=== PATIENT | male | born 1965 | race Caucasian/White ===

== ENCOUNTER → 2021-08-05 15:07 | Emergency (ER) | payer MEDICARE ==
[~2021-08-05 15:07] MED LIST: 3IN1 COMMODE; ALBUTEROL SULF8.5 GM PO; ANORO ELLIPTA1 EACH INH; ASPIRIN81 MG PO; BENTYL10 MG PO; CEFDINIR300 MG PO; CIPRO500 MG PO; COZAAR50 MG PO; DICLOFENAC TD; FIBERCON1 EACH PO; FOLIC ACID1 MG PO; HYDROCODONE-APA1 TAB PO; ISOSORBIDE MONO60 MG PO; LEVAQUIN500 MG PO; LIPITOR20 MG PO; LIPITOR80 MG PO; LOFIBRA54 MG PO; LOPRESSOR50 MG PO; MEDROL 4MG DOSEP4 MG PO; METRONIDAZOLE500 MG PO; MOBIC7.5 MG PO; NICOTINE PO; NITROQUIK SL0.4 MG SL; NORVASC2.5 MG PO; NORVASC5 MG PO; PERCOCET 5/3251 TAB PO; PLAVIX75 MG PO; PROTONIX40 M1 PO; RANEXA1000 MG PO; RANEXA500 MG PO; VIBRAMYCIN100 MG PO; VITAMIN D32000 UNI1 PO; ZITHROMAX250 MG PO
[2021-08-05 15:55] LABS: BASOPHIL 1.1 % (0-2); HGB 15.7 g/dl (13.2-18.0); LYMPHOCYTE 15.8 % (15-48); MCH 33.8 pg (25.0-31.0); MCHC 35.7 g/dL (32.0-36.0); MCV 94.8 fL (78.0-100.0); MPV 8.9 fL (6.0-9.5); NEUTROPHIL 73.1 % (41-80); NRBC 0; PLT 205 K/uL (150-400); RBC 4.64 M/uL (4.70-6.00); RDW 12.2 % (11.5-14.0); WBC 9.2 K/uL (4.0-10.5)
[2021-08-05 15:59] LABS: INR 1.31 (0.9-1.2); PROTHROMBIN TIME 15.6 SECONDS (11.8-13.4); PTT 29.2 SECONDS (24.4-34.7)
[2021-08-05 16:11] LABS: ALBUMIN 3.9 g/dL (3.4-5.0); BILIRUBIN - TOTAL 0.8 mg/dL (0.2-1.0); BUN/CREAT RATIO (CALC) 4.6 RATIO; CREATININE 1.09 mg/dL (0.67-1.17); GLOBULIN (CALCULATION) 3.7 g/dL; POTASSIUM 4.3 mmol/L (3.5-5.1); TOTAL PROTEIN 7.6 g/dL (6.4-8.2)
== END | disposition home or self-care (01) ==
LOC: FER 15:07
PROVIDERS: Emergency Medicine
DX: R07.89 Other chest pain (principal); R06.02 Shortness of breath; F17.210 Nicotine dependence, cigarettes, uncomplicated; I25.10 Atherosclerotic heart disease of native coronary artery without angina pectoris; I50.9 Heart failure, unspecified; I25.2 Old myocardial infarction; Z95.5 Presence of coronary angioplasty implant and graft; Z95.0 Presence of cardiac pacemaker; Z88.5 Allergy status to narcotic agent; Z20.822 Contact with and (suspected) exposure to COVID-19; Z86.718 Personal history of other venous thrombosis and embolism
CPT/HCPCS: 36415; 71045; 71275; 80053; 83880; 84145; 84484; 85025; 85610; 85730; 93005; J1170; J1885; J2405; Q9967; U0002

== ENCOUNTER 2021-08-18 14:58 | Emergency (ER) | payer MEDICARE, OTHER ==
[2021-08-18 15:48] LABS: INR 1.18 (0.9-1.2); PROTHROMBIN TIME 14.4 SECONDS (11.8-13.4); PTT 23.1 SECONDS (24.4-34.7)
[2021-08-18 16:02] LABS: EOSINOPHIL 1.6 % (0-5); HCT 44.6 % (42.0-52.0); HGB 16.2 g/dl (13.2-18.0); LYMPHOCYTE 13.7 % (15-48); MCH 33.9 pg (25.0-31.0); MCHC 36.3 g/dL (32.0-36.0); MCV 93.3 fL (78.0-100.0); MONOCYTE 5.5 % (0-12); MPV 9.5 fL (6.0-9.5); NEUTROPHIL 77.5 % (41-80); NRBC 0; PLT 199 K/uL (150-400); RBC 4.78 M/uL (4.70-6.00); RDW 11.9 % (11.5-14.0); WBC 10.5 K/uL (4.0-10.5)
[2021-08-18 16:26] LABS: CORONAVIRUS 2019 SARS-COV-2 NEGATIVE (NEGATIVE); INFLUENZA A NAA NEGATIVE (NEGATIVE)
[2021-08-18 16:43] LABS: ALBUMIN 3.5 g/dL (3.4-5.0); BILIRUBIN - TOTAL 0.8 mg/dL (0.2-1.0); BUN/CREAT RATIO (CALC) 7.4 RATIO; CREATININE 0.95 mg/dL (0.67-1.17); GLOBULIN (CALCULATION) 3.2 g/dL; POTASSIUM 3.9 mmol/L (3.5-5.1); TOTAL PROTEIN 6.7 g/dL (6.4-8.2)
[2021-08-18] MEDS ORDERED: PERCOCET 5-3251 EACH PO (18:21)
[2021-08-18] MEDS ORDERED: AMOX TR-K CLV1 EAC4 PO (18:22)
[2021-08-18] MEDS ORDERED: PREDNISONE 20MG20 MG PO (18:23)
[2021-08-18] MEDS ORDERED: AZITHROMYCIN250 MG PO (18:23)
== END 2021-08-18 18:39 | disposition home or self-care (01) ==
LOC: FER 14:58
PROVIDERS: Emergency Medicine
DX: J44.1 Chronic obstructive pulmonary disease with (acute) exacerbation (principal); J18.9 Pneumonia, unspecified organism; R07.89 Other chest pain; I25.2 Old myocardial infarction; I10 Essential (primary) hypertension; F17.210 Nicotine dependence, cigarettes, uncomplicated; Z88.5 Allergy status to narcotic agent; Z20.822 Contact with and (suspected) exposure to COVID-19; Z95.5 Presence of coronary angioplasty implant and graft
CPT/HCPCS: 36415; 71045; 80053; 84484; 85025; 85610; 85730; 93005; 94640; 94664; J1170; J2930; U0002

== ENCOUNTER 2021-08-25 12:58 | Day surgery (SDCO) | payer MEDICARE, OTHER ==
[~2021-08-25] VITALS: Ht 165.1 cm; Wt 99.8 kg
[~2021-08-25 12:58] MED LIST changes: +AMOX TR-K CLV1 EAC4 PO; +AZITHROMYCIN250 MG PO; +PERCOCET 5-3251 EACH PO; +PREDNISONE 20MG20 MG PO
[2021-08-25 13:41] LABS: BASOPHIL 0.7 % (0-2); EOSINOPHIL 1.5 % (0-5); HCT 41.2 % (42.0-52.0); HGB 14.8 g/dl (13.2-18.0); LYMPHOCYTE 18.2 % (15-48); MCH 33.8 pg (25.0-31.0); MCHC 35.9 g/dL (32.0-36.0); MCV 94.1 fL (78.0-100.0); MPV 8.7 fL (6.0-9.5); NEUTROPHIL 73.6 % (41-80); NRBC 0; PLT 199 K/uL (150-400); RBC 4.38 M/uL (4.70-6.00); RDW 11.9 % (11.5-14.0)
[2021-08-25 13:46] LABS: INR 1.21 (0.9-1.2); PROTHROMBIN TIME 14.7 SECONDS (11.8-13.4); PTT 26.9 SECONDS (24.4-34.7)
[2021-08-25 14:13] LABS: CORONAVIRUS 2019 SARS-COV-2 NEGATIVE (NEGATIVE); INFLUENZA A NAA NEGATIVE (NEGATIVE)
[2021-08-25 14:17] LABS: ALBUMIN 3.7 g/dL (3.4-5.0); ALKALINE PHOSHATASE 52 U/L (46-116); ALT 37 U/L (16-63); AST 17 U/L (15-37); BILIRUBIN - TOTAL 0.5 mg/dL (0.2-1.0); BUN 8 mg/dL (7-18); BUN/CREAT RATIO (CALC) 7.5 RATIO; C-REACTIVE PROTEIN <0.20 mg/dL (<=0.90); CHLORIDE 97 mmol/L (98-107); CO2 (BICARBONATE) 28 mmol/L (21-32); CPK 79 U/L (39-308); CREATININE 1.06 mg/dL (0.67-1.17); GLOBULIN (CALCULATION) 3.4 g/dL; GLUCOSE 116 mg/dL (74-106); MAGNESIUM 1.9 mg/dL (1.8-2.4); POTASSIUM 3.7 mmol/L (3.5-5.1); TOTAL PROTEIN 7.1 g/dL (6.4-8.2)
[2021-08-25 14:31] LABS: BILIRUBIN 1+ mg/dL (NEGATIVE); BLOOD NEGATIVE Ery/uL (NEGATIVE); CLARITY CLEAR (CLEAR); COLOR YELLOW (YELLOW); GLUCOSE (U) NORMAL (NORMAL); LEUKOCYTES NEGATIVE Leu/uL (NEGATIVE); NITRITE NEGATIVE (NEGATIVE); PROTEIN TRACE (LOW) mg/dL (NEGATIVE); UROBILINOGEN 0.2 mg/dL (0.2-1.0); pH 7.5 (5.0-9.0)
[2021-08-25 14:33] LABS: LACTIC ACID 1.4 mmol/L (0.4-1.9)
[2021-08-25 14:37] LABS: SQUAMOUS EPITHELIAL CELLS RARE
[2021-08-25] MEDS ORDERED: ELIQUIS5 MG PO (17:57)
[2021-08-26 06:39] LABS: BASOPHIL 0.5 % (0-2); HCT 35.5 % (42.0-52.0); HGB 12.5 g/dl (13.2-18.0); LYMPHOCYTE 22.3 % (15-48); MCH 33.8 pg (25.0-31.0); MCHC 35.2 g/dL (32.0-36.0); MCV 95.9 fL (78.0-100.0); MPV 8.9 fL (6.0-9.5); NEUTROPHIL 69.1 % (41-80); NRBC 0; PLT 170 K/uL (150-400); RDW 11.9 % (11.5-14.0); WBC 9.8 K/uL (4.0-10.5)
[2021-08-26 07:07] LABS: BUN/CREAT RATIO (CALC) 10.5 RATIO; CREATININE 1.05 mg/dL (0.67-1.17); POTASSIUM 3.8 mmol/L (3.5-5.1)
[2021-08-27 06:35] LABS: BASOPHIL 0.2 % (0-2); EOSINOPHIL 1.1 % (0-5); HCT 35.8 % (42.0-52.0); HGB 12.5 g/dl (13.2-18.0); MCH 33.3 pg (25.0-31.0); MCHC 34.9 g/dL (32.0-36.0); MCV 95.5 fL (78.0-100.0); MONOCYTE 4.9 % (0-12); NRBC 0; PLT 169 K/uL (150-400); RBC 3.75 M/uL (4.70-6.00); RDW 11.9 % (11.5-14.0); WBC 10.3 K/uL (4.0-10.5)
[2021-08-27 06:56] LABS: BUN/CREAT RATIO (CALC) 9.3 RATIO; C-REACTIVE PROTEIN 0.6 mg/dL (<=0.90); CREATININE 0.97 mg/dL (0.67-1.17)
[2021-08-27] MEDS ORDERED: PREDNISONE 20MG20 MG PO (12:16)
== END 2021-08-27 12:55 | disposition home or self-care (01) ==
LOC: FER 12:58 → FMS 16:03
PROVIDERS: Allergy & Immunology Allergy; Emergency Medicine; ADMIT Family Medicine
DX: J44.1 Chronic obstructive pulmonary disease with (acute) exacerbation (principal); R91.8 Other nonspecific abnormal finding of lung field; R07.89 Other chest pain; R79.89 Other specified abnormal findings of blood chemistry; R19.7 Diarrhea, unspecified; I25.10 Atherosclerotic heart disease of native coronary artery without angina pectoris; I12.9 Hypertensive chronic kidney disease with stage 1 through stage 4 chronic kidney disease, or unspecified chronic kidney disease; N18.2 Chronic kidney disease, stage 2 (mild); E78.5 Hyperlipidemia, unspecified; Z95.5 Presence of coronary angioplasty implant and graft; Z79.01 Long term (current) use of anticoagulants; Z20.822 Contact with and (suspected) exposure to COVID-19; Z88.5 Allergy status to narcotic agent; Z95.0 Presence of cardiac pacemaker; Z72.0 Tobacco use
CPT/HCPCS: 36415; 36600; 71275; 80048; 80053; 81001; 82550; 82728; 82803; 83605; 83735; 83880; 84145; 84484; 85025; 85610; 85730; 86140; 87040; 87077; 87186; 93005; 94010; 94640; 94664; 94760; 94762; G0378; J1170; J1650; J2405; J2543; J7030; J7512; Q9967; U0002

== ENCOUNTER 2021-10-27 10:54 | Emergency (ER) | payer MEDICARE, OTHER ==
[~2021-10-27 10:54] MED LIST changes: +ELIQUIS5 MG PO
[2021-10-27 11:29] LABS: EOSINOPHIL 2.9 % (0-5); LYMPHOCYTE 17.5 % (15-48); MCH 33.9 pg (25.0-31.0); MCHC 35.7 g/dL (32.0-36.0); MCV 94.8 fL (78.0-100.0); MONOCYTE 6.9 % (0-12); MPV 9.3 fL (6.0-9.5); NEUTROPHIL 70.8 % (41-80); NRBC 0; PLT 178 K/uL (150-400); RBC 4.43 M/uL (4.70-6.00); RDW 12.4 % (11.5-14.0); WBC 8.7 K/uL (4.0-10.5)
[2021-10-27 11:39] LABS: ALBUMIN 3.4 g/dL (3.4-5.0); BILIRUBIN - TOTAL 0.7 mg/dL (0.2-1.0); BUN/CREAT RATIO (CALC) 3.8 RATIO; CREATININE 1.05 mg/dL (0.67-1.17); GLOBULIN (CALCULATION) 3.9 g/dL; POTASSIUM 3.5 mmol/L (3.5-5.1); TOTAL PROTEIN 7.3 g/dL (6.4-8.2)
[2021-10-27 11:40] LABS: INR 1.29 (0.9-1.2); PROTHROMBIN TIME 15.4 SECONDS (11.8-13.4); PTT 30.7 SECONDS (24.4-34.7)
[2021-10-27 11:41] LABS: D-DIMER 0.36 ug/mLFEU (0.00-0.41)
[2021-10-27 15:53] LABS: BILIRUBIN NEGATIVE (NEGATIVE); BLOOD TRACE-INTACT Ery/uL (NEGATIVE); CLARITY CLEAR (CLEAR); COLOR YELLOW (YELLOW); GLUCOSE (U) NORMAL (NORMAL); LEUKOCYTES NEGATIVE Leu/uL (NEGATIVE); NITRITE NEGATIVE (NEGATIVE); PROTEIN NEGATIVE (NEGATIVE); SPECIFIC GRAVITY 1.025 (1.001-1.030)
[2021-10-27 16:22] LABS: URINARY RBC RARE; URINARY WBC RARE
== END 2021-10-27 19:17 | disposition other institution (70) ==
LOC: FER 10:54
PROVIDERS: Emergency Medicine
DX: R07.9 Chest pain, unspecified (principal); R91.1 Solitary pulmonary nodule; J04.0 Acute laryngitis; J44.9 Chronic obstructive pulmonary disease, unspecified; F17.200 Nicotine dependence, unspecified, uncomplicated; Z88.5 Allergy status to narcotic agent; Z20.822 Contact with and (suspected) exposure to COVID-19; Z28.310 Unvaccinated for COVID-19
CPT/HCPCS: 36415; 36600; 71045; 80053; 81001; 82553; 82803; 84484; 85025; 85379; 85610; 85730; 93005; J2270; J2405; J7040; U0002

== ENCOUNTER 2021-11-07 23:57 | Emergency (ER) | payer MEDICARE, OTHER | END 2021-11-08 02:42 | disposition home or self-care (01) | LOC: FER 23:57 | DX: T17.428A Food in trachea causing other injury, initial encounter (principal); J44.9 Chronic obstructive pulmonary disease, unspecified; I10 Essential (primary) hypertension; Z88.5 Allergy status to narcotic agent; Z87.891 Personal history of nicotine dependence | CPT/HCPCS: J1170 ==

== ENCOUNTER → 2021-11-26 | Day surgery (SDC) | payer MEDICARE, OTHER ==
[~2021-11-26] VITALS: Ht 165.1 cm; Wt 86.2 kg
[~2021-11-26] MED LIST changes: +NORCO 5-325 TA1 EACH PO
== END | disposition home or self-care (01) ==
LOC: FAS 08:22
DX: C32.9 Malignant neoplasm of larynx, unspecified (principal); I87.2 Venous insufficiency (chronic) (peripheral); E78.5 Hyperlipidemia, unspecified; I10 Essential (primary) hypertension; I25.2 Old myocardial infarction; J44.9 Chronic obstructive pulmonary disease, unspecified; Z93.0 Tracheostomy status; Z90.49 Acquired absence of other specified parts of digestive tract; Z79.01 Long term (current) use of anticoagulants; Z79.02 Long term (current) use of antithrombotics/antiplatelets
CPT/HCPCS: 71045; 76000; 93005; C1788; J0690; J1644; J2250; J2704; J7120

== ENCOUNTER → 2022-01-13 | Day surgery (SDC) | payer MEDICARE, OTHER ==
[~2022-01-13] VITALS: Ht 165.1 cm; Wt 86.2 kg
[~2022-01-13] MED LIST changes: +TRELEGY ELLIPT1 EACH INH; +VENTOLIN HFA IN18 GM INH
[2022-01-13 11:33] LABS: MCH 30.8 pg (25.0-31.0); MCHC 33.3 g/dL (32.0-36.0); MCV 92.5 fL (78.0-100.0); MPV 8.4 fL (6.0-9.5); PLT 178 K/uL (150-400); RBC 2.92 M/uL (4.70-6.00); RDW 14.1 % (11.5-14.0); WBC 3.1 K/uL (4.0-10.5)
[2022-01-13 14:18] LABS: ALBUMIN 2.9 g/dL (3.4-5.0); BILIRUBIN - TOTAL 0.4 mg/dL (0.2-1.0); BUN/CREAT RATIO (CALC) 5.6 RATIO; CREATININE 0.9 mg/dL (0.67-1.17); POTASSIUM 3.4 mmol/L (3.5-5.1); TOTAL PROTEIN 6.9 g/dL (6.4-8.2)
[2022-01-14 10:14] LABS: BASOPHIL 1.3 % (0-2); EOSINOPHIL 1.3 % (0-5); LYMPHOCYTE 25.6 % (15-48); MONOCYTE 15.9 % (0-12); NEUTROPHIL 50.9 % (41-80); NRBC 0
== END | disposition home or self-care (01) ==
LOC: FAS 09:53
PROVIDERS: Surgery
DX: K94.23 Gastrostomy malfunction (principal); C32.9 Malignant neoplasm of larynx, unspecified; E78.5 Hyperlipidemia, unspecified; I10 Essential (primary) hypertension; I25.2 Old myocardial infarction; J44.9 Chronic obstructive pulmonary disease, unspecified; G47.30 Sleep apnea, unspecified; F17.210 Nicotine dependence, cigarettes, uncomplicated; Z79.01 Long term (current) use of anticoagulants; Z79.02 Long term (current) use of antithrombotics/antiplatelets; Z79.899 Other long term (current) drug therapy; Z20.822 Contact with and (suspected) exposure to COVID-19
CPT/HCPCS: 36415; 80053; 85025; J2250; J2704; J7120; U0002

== ENCOUNTER 2022-01-27 19:17 | Inpatient (IN) | payer MEDICARE, OTHER ==
[~2022-01-27] VITALS: Ht 165.1 cm; Wt 95.0 kg
[2022-01-27 19:49] LABS: BASOPHIL 0 % (0-2); EOSINOPHIL 1.2 % (0-5); HCT 21.5 % (42.0-52.0); HGB 7.4 g/dl (13.2-18.0); LYMPHOCYTE 16.4 % (15-48); MCH 30.5 pg (25.0-31.0); MCHC 34.4 g/dL (32.0-36.0); MCV 88.5 fL (78.0-100.0); MONOCYTE 6.7 % (0-12); MPV 9.4 fL (6.0-9.5); NEUTROPHIL 74.5 % (41-80); NRBC 0; PLT 121 K/uL (150-400); RBC 2.43 M/uL (4.70-6.00); RDW 13.8 % (11.5-14.0)
[2022-01-27 19:53] LABS: WBC 1.7 K/uL (4.0-10.5)
[2022-01-27 20:07] LABS: ALBUMIN 2.8 g/dL (3.4-5.0); BILIRUBIN - TOTAL 0.6 mg/dL (0.2-1.0); BUN/CREAT RATIO (CALC) 12.2 RATIO; CREATININE 1.39 mg/dL (0.67-1.17); GLOBULIN (CALCULATION) 3.5 g/dL; POTASSIUM 3.7 mmol/L (3.5-5.1); TOTAL PROTEIN 6.3 g/dL (6.4-8.2)
[2022-01-27 20:11] LABS: LACTIC ACID 1.5 mmol/L (0.4-1.9)
[2022-01-27 20:50] LABS: CORONAVIRUS 2019 SARS-COV-2 NEGATIVE (NEGATIVE); INFLUENZA A NAA NEGATIVE (NEGATIVE)
[2022-01-27 21:52] LABS: BILIRUBIN NEGATIVE (NEGATIVE); BLOOD NEGATIVE Ery/uL (NEGATIVE); CLARITY CLEAR (CLEAR); COLOR YELLOW (YELLOW); GLUCOSE (U) NORMAL (NORMAL); LEUKOCYTES NEGATIVE Leu/uL (NEGATIVE); NITRITE NEGATIVE (NEGATIVE); PROTEIN NEGATIVE (NEGATIVE); UROBILINOGEN 0.2 mg/dL (0.2-1.0)
[2022-01-27 22:57] LABS: INR 1.37 (0.9-1.2); PROTHROMBIN TIME 16.4 SECONDS (11.9-13.9); PTT 38.8 SECONDS (24.9-34.6)
[2022-01-28 01:06] LABS: RETICULOCYTE COUNT 0.5 % (1.0-2.0)
[2022-01-28 01:10] LABS: IRON % SATURATION 15.7 %SAT (20-50)
[2022-01-28 05:32] LABS: BASOPHIL 0.4 % (0-2); EOSINOPHIL 1.3 % (0-5); HCT 23.2 % (42.0-52.0); HGB 7.9 g/dl (13.2-18.0); LYMPHOCYTE 16.6 % (15-48); MCH 29.7 pg (25.0-31.0); MCHC 34.1 g/dL (32.0-36.0); MCV 87.2 fL (78.0-100.0); MONOCYTE 7.6 % (0-12); MPV 9.5 fL (6.0-9.5); NEUTROPHIL 72.8 % (41-80); NRBC 0; PLT 103 K/uL (150-400); RBC 2.66 M/uL (4.70-6.00); RDW 15.1 % (11.5-14.0); WBC 2.2 K/uL (4.0-10.5)
[2022-01-28 05:43] LABS: BUN/CREAT RATIO (CALC) 12.4 RATIO; CREATININE 1.05 mg/dL (0.67-1.17); POTASSIUM 3.7 mmol/L (3.5-5.1)
[2022-01-28 10:46] LABS: FOLIC ACID (SERUM) <0.5 ng/mL (8.6-58.9)
[2022-01-28 20:40] LABS: CORONAVIRUS 229E NOT DETECTED (NOT DETECT); CORONAVIRUS HKU1 NOT DETECTED (NOT DETECT); CORONAVIRUS NL63 NOT DETECTED (NOT DETECT); CORONAVIRUS OC43 NOT DETECTED (NOT DETECT); HUMAN METAPNEUMO NOT DETECTED (NOT DETECT)
[2022-01-28 20:41] LABS: B. PERTUSSIS DNA NOT DETECTED (NOT DETECT); CHLAMYDOPHILA PNEUMON DNA PCR NOT DETECTED (NOT DETECT); CORONAVIRUS 2019 PCR NOT DETECTED (NOT DETECTD); INFLUENZA A NOT DETECTED (NOT DETECT); INFLUENZA A 2009 H1N1 NOT DETECTED (NOT DETECT); INFLUENZA A H1 NOT DETECTED (NOT DETECT); INFLUENZA A H3 NOT DETECTED (NOT DETECT); INFLUENZA B NOT DETECTED (NOT DETECT); MYCOPLASMA PNEUMONIAE NOT DETECTED (NOT DETECT); PARAINFLUENZA 1 NOT DETECTED (NOT DETECT); PARAINFLUENZA 2 NOT DETECTED (NOT DETECT); PARAINFLUENZA 3 NOT DETETED (NOT DETECT); PARAINFLUENZA 4 NOT DETECTED (NOT DETECT); RESPIRATORY SYNCYTIAL VIRUS NOT DETECTED (NOT DETECT)
--- NOTE | 2022-01-28 20:48 | NUR ---
levophed stopped at 1900 during shift change. pt bp consistent at 110/50-60. hr 90/100
--- NOTE | 2022-01-29 02:47 | NUR ---
TRACH CARE WAS DONE BY RESPIRATORY WITH INNER CANNULA CHANGED. G TUBE WAS FLUSHED WITH 50 ML OF WATER BY RN. PATIENT TOLERATED WELL.
[2022-01-29 05:32] LABS: ALBUMIN 2.4 g/dL (3.4-5.0); ALKALINE PHOSHATASE 54 U/L (46-116); ALT 16 U/L (16-63); AST 15 U/L (15-37); BILIRUBIN - TOTAL 0.4 mg/dL (0.2-1.0); BUN 6 mg/dL (7-18); C-REACTIVE PROTEIN >18.00 mg/dL (<=0.90); CHLORIDE 101 mmol/L (98-107); CO2 (BICARBONATE) 29 mmol/L (21-32); CREATININE 0.86 mg/dL (0.67-1.17); GLOBULIN (CALCULATION) 2.9 g/dL; GLUCOSE 111 mg/dL (74-106); PHOSPHORUS 2.9 mg/dL (2.6-4.7); POTASSIUM 3.3 mmol/L (3.5-5.1); TOTAL PROTEIN 5.3 g/dL (6.4-8.2)
[2022-01-29 06:18] LABS: BASOPHIL 0.5 % (0-2); HCT 20.7 % (42.0-52.0); HGB 7.1 g/dl (13.2-18.0); MCH 30.1 pg (25.0-31.0); MCHC 34.3 g/dL (32.0-36.0); MCV 87.7 fL (78.0-100.0); MONOCYTE 8.7 % (0-12); MPV 9.6 fL (6.0-9.5); NEUTROPHIL 71.8 % (41-80); NRBC 0; PLT 107 K/uL (150-400); RBC 2.36 M/uL (4.70-6.00); RDW 15.4 % (11.5-14.0); WBC 2.1 K/uL (4.0-10.5)
[2022-01-29 06:42] LABS: MAGNESIUM 1.5 mg/dL (1.8-2.4)
[2022-01-30 06:18] LABS: BASOPHIL 0.4 % (0-2); EOSINOPHIL 0.8 % (0-5); HCT 20.9 % (42.0-52.0); HGB 7.2 g/dl (13.2-18.0); LYMPHOCYTE 16.5 % (15-48); MCH 30.1 pg (25.0-31.0); MCHC 34.4 g/dL (32.0-36.0); MCV 87.4 fL (78.0-100.0); MONOCYTE 12.4 % (0-12); MPV 9.3 fL (6.0-9.5); NEUTROPHIL 69.1 % (41-80); NRBC 0; PLT 102 K/uL (150-400); RBC 2.39 M/uL (4.70-6.00); RDW 15.1 % (11.5-14.0); WBC 2.4 K/uL (4.0-10.5)
[2022-01-30 06:50] LABS: ALBUMIN 2.4 g/dL (3.4-5.0); BILIRUBIN - TOTAL 0.3 mg/dL (0.2-1.0); BUN/CREAT RATIO (CALC) 3.6 RATIO; C-REACTIVE PROTEIN 17.1 mg/dL (<=0.90); CREATININE 0.83 mg/dL (0.67-1.17); GLOBULIN (CALCULATION) 3.1 g/dL; MAGNESIUM 1.4 mg/dL (1.8-2.4); POTASSIUM 3.2 mmol/L (3.5-5.1); TOTAL PROTEIN 5.5 g/dL (6.4-8.2)
--- NOTE | 2022-01-30 13:33 | NUR ---
PT HAS [facility];PLEASE NOTIFY NARCISO AT [phone] AT D/C
[2022-01-31 06:15] LABS: BASOPHIL 0.4 % (0-2); EOSINOPHIL 0.4 % (0-5); HCT 19.7 % (42.0-52.0); LYMPHOCYTE 19.9 % (15-48); MCH 29.3 pg (25.0-31.0); MCV 88.7 fL (78.0-100.0); MONOCYTE 18.7 % (0-12); MPV 8.7 fL (6.0-9.5); NEUTROPHIL 59.8 % (41-80); NRBC 0; PLT 103 K/uL (150-400); RBC 2.22 M/uL (4.70-6.00); RDW 15.6 % (11.5-14.0); WBC 2.4 K/uL (4.0-10.5)
[2022-01-31 06:17] LABS: HGB 6.5 g/dl (13.2-18.0)
[2022-01-31 06:40] LABS: BUN/CREAT RATIO (CALC) 3.8 RATIO; C-REACTIVE PROTEIN 15.1 mg/dL (<=0.90); CREATININE 0.8 mg/dL (0.67-1.17); POTASSIUM 3.4 mmol/L (3.5-5.1)
[2022-02-01 08:07] LABS: BASOPHIL 0.4 % (0-2); EOSINOPHIL 1.1 % (0-5); MCH 29.8 pg (25.0-31.0); MCHC 33.5 g/dL (32.0-36.0); MONOCYTE 18.4 % (0-12); MPV 9.1 fL (6.0-9.5); NEUTROPHIL 61.3 % (41-80); NRBC 0; PLT 118 K/uL (150-400); RBC 2.92 M/uL (4.70-6.00); RDW 15.8 % (11.5-14.0); WBC 2.6 K/uL (4.0-10.5)
[2022-02-01 08:12] LABS: HGB 8.7 g/dl (13.2-18.0)
[2022-02-01 08:44] LABS: BUN/CREAT RATIO (CALC) 3.9 RATIO; C-REACTIVE PROTEIN 12.8 mg/dL (<=0.90); CREATININE 0.77 mg/dL (0.67-1.17); MAGNESIUM 1.2 mg/dL (1.8-2.4); POTASSIUM 4.5 mmol/L (3.5-5.1)
[2022-02-01] MEDS ORDERED: AMOX TR-K CLV1 EAC4 PO (17:02)
[2022-02-01] MEDS ORDERED: DUONEB 2.5-0.5M1 AMP INH (17:25)
[2022-02-01] MEDS ORDERED: MUCINEX1200 MG PO (17:25)
[2022-02-01] MEDS ORDERED: HYDROCODONE-CH473 ML PO (17:25)
[2022-02-01] MEDS ORDERED: TESSALON PERLE100 MG PO (17:25)
--- NOTE | 2022-02-01 19:20 | NUR ---
PORT WAS FLUSHED, HEP LOCKED AND DEACCESSED PORT AND COVERED WITH BANDAGED. FLUSHED WITH HEPARIN LOCK BUT WAS UNABLE TO SCAN INTO SEP.
== END 2022-02-01 17:59 | disposition home health service (06) | DRG 871 ==
LOC: FER 19:17 → FICU 22:52 → FTCU 01-29 13:01
PROVIDERS: Emergency Medicine; Nurse Practitioner Acute Care; ADMIT Internal Medicine
PROC: 3E033XZ Introduction of Vasopressor into Peripheral Vein, Percutaneous Approach (ICD-10-PCS; principal; 2022-01-27)
PROC: 3E03329 Introduction of Other Anti-infective into Peripheral Vein, Percutaneous Approach (ICD-10-PCS; 2022-01-27)
PROC: 30233N1 Transfusion of Nonautologous Red Blood Cells into Peripheral Vein, Percutaneous Approach (ICD-10-PCS; 2022-01-31)
DX: A41.9 Sepsis, unspecified organism (principal); D61.810 Antineoplastic chemotherapy induced pancytopenia; E43 Unspecified severe protein-calorie malnutrition; G93.41 Metabolic encephalopathy; R65.21 Severe sepsis with septic shock; K57.32 Diverticulitis of large intestine without perforation or abscess without bleeding; N17.9 Acute kidney failure, unspecified; J44.1 Chronic obstructive pulmonary disease with (acute) exacerbation; D84.821 Immunodeficiency due to drugs; I50.32 Chronic diastolic (congestive) heart failure; C34.90 Malignant neoplasm of unspecified part of unspecified bronchus or lung; E87.1 Hypo-osmolality and hyponatremia; Z20.822 Contact with and (suspected) exposure to COVID-19; T45.1X5A Adverse effect of antineoplastic and immunosuppressive drugs, initial encounter; R91.8 Other nonspecific abnormal finding of lung field; T66.XXXA Radiation sickness, unspecified, initial encounter; I11.0 Hypertensive heart disease with heart failure; E78.5 Hyperlipidemia, unspecified; C32.9 Malignant neoplasm of larynx, unspecified; E83.42 Hypomagnesemia; E87.6 Hypokalemia; J98.01 Acute bronchospasm; I49.5 Sick sinus syndrome; F17.210 Nicotine dependence, cigarettes, uncomplicated; I25.10 Atherosclerotic heart disease of native coronary artery without angina pectoris; R13.10 Dysphagia, unspecified; D51.9 Vitamin B12 deficiency anemia, unspecified; D52.9 Folate deficiency anemia, unspecified; M51.36 Other intervertebral disc degeneration, lumbar region; I25.2 Old myocardial infarction; Z95.0 Presence of cardiac pacemaker; Z93.0 Tracheostomy status; Z88.5 Allergy status to narcotic agent; Z90.49 Acquired absence of other specified parts of digestive tract; Z98.890 Other specified postprocedural states; Z80.0 Family history of malignant neoplasm of digestive organs; Z79.899 Other long term (current) drug therapy; Z28.310 Unvaccinated for COVID-19; Z92.21 Personal history of antineoplastic chemotherapy; Z93.1 Gastrostomy status; Z95.5 Presence of coronary angioplasty implant and graft; Z68.31 Body mass index [BMI] 31.0-31.9, adult
CPT/HCPCS: 36415; 36430; 71045; 71275; 80048; 80053; 81003; 82270; 82607; 82728; 82746; 83540; 83550; 83605; 83735; 83880; 84100; 84145; 84300; 84484; 85025; 85610; 85730; 86140; 86850; 86900; 86901; 86922; 87040; 87070; 87205; 93005; 94640; C9113; J0692; J1170; J1450; J1642; J2185; J2405; J2916; J3370; J3420; J3475; J7030; J7040; J7050; P9016; Q9967; U0002

== ENCOUNTER 2022-03-18 16:50 | Emergency (ER) | payer MEDICARE, OTHER ==
[~2022-03-18 16:50] MED LIST changes: +DUONEB 2.5-0.5M1 AMP INH; +HYDROCODONE-CH473 ML PO; +LEVAQUIN750 MG PO; +MORPHINE SULFAT15 MG PO; +MUCINEX1200 MG PO; +ONDANSETRON HCL4 MG PO; +TESSALON PERLE100 MG PO
[2022-03-18 17:26] LABS: BASOPHIL 0.5 % (0-2); EOSINOPHIL 3.3 % (0-5); HCT 24.3 % (42.0-52.0); HGB 8.4 g/dl (13.2-18.0); LYMPHOCYTE 6.2 % (15-48); MCH 31.2 pg (25.0-31.0); MCHC 34.6 g/dL (32.0-36.0); MCV 90.3 fL (78.0-100.0); MONOCYTE 7.8 % (0-12); MPV 8.1 fL (6.0-9.5); NEUTROPHIL 80.1 % (41-80); NRBC 0; PLT 208 K/uL (150-400); RBC 2.69 M/uL (4.70-6.00); WBC 9.4 K/uL (4.0-10.5)
[2022-03-18 17:45] LABS: ALBUMIN 3.1 g/dL (3.4-5.0); BILIRUBIN - TOTAL 0.5 mg/dL (0.2-1.0); BUN/CREAT RATIO (CALC) 8.8 RATIO; CREATININE 1.02 mg/dL (0.67-1.17); POTASSIUM 3.8 mmol/L (3.5-5.1); TOTAL PROTEIN 7.1 g/dL (6.4-8.2)
[2022-03-18 17:48] LABS: INR 1.56 (0.9-1.2); PROTHROMBIN TIME 18.2 SECONDS (11.9-13.9); PTT 49.6 SECONDS (24.9-34.6)
[2022-03-18 19:51] LABS: CORONAVIRUS 2019 SARS-COV-2 NEGATIVE (NEGATIVE); INFLUENZA A NAA NEGATIVE (NEGATIVE)
[2022-03-18 19:55] LABS: BILIRUBIN 1+ mg/dL (NEGATIVE); BLOOD NEGATIVE Ery/uL (NEGATIVE); CLARITY CLEAR (CLEAR); COLOR YELLOW (YELLOW); GLUCOSE (U) NORMAL (NORMAL); LEUKOCYTES NEGATIVE Leu/uL (NEGATIVE); NITRITE NEGATIVE (NEGATIVE); PROTEIN TRACE (LOW) mg/dL (NEGATIVE); SPECIFIC GRAVITY 1.015 (1.001-1.030); pH 7.5 (5.0-9.0)
[2022-03-18] MEDS ORDERED: VENTOLIN HFA IN18 GM INH (21:49)
[2022-03-18] MEDS ORDERED: NEBULIZER UNIT NEB (21:49)
== END 2022-03-18 22:05 | disposition home or self-care (01) ==
LOC: FER 16:50
PROVIDERS: Emergency Medicine; Internal Medicine
DX: J44.1 Chronic obstructive pulmonary disease with (acute) exacerbation (principal); J98.09 Other diseases of bronchus, not elsewhere classified; C34.30 Malignant neoplasm of lower lobe, unspecified bronchus or lung; C32.9 Malignant neoplasm of larynx, unspecified; I10 Essential (primary) hypertension; F17.210 Nicotine dependence, cigarettes, uncomplicated; Z88.5 Allergy status to narcotic agent; Z20.822 Contact with and (suspected) exposure to COVID-19
CPT/HCPCS: 36415; 71045; 71250; 80053; 81001; 83605; 83880; 84484; 85025; 85610; 85730; 93005; 94640; 94664; 94760; J1100; J1170; J1642; J3010; U0002

== ENCOUNTER 2022-03-25 14:10 | Day surgery (SDCO) | payer MEDICARE, OTHER ==
[~2022-03-25] VITALS: Ht 165.1 cm; Wt 78.5 kg
[~2022-03-25 14:10] MED LIST changes: +NEBULIZER UNIT NEB
[2022-03-25 15:05] LABS: BASOPHIL 0.5 % (0-2); EOSINOPHIL 2.4 % (0-5); HCT 26.1 % (42.0-52.0); HGB 9.1 g/dl (13.2-18.0); LYMPHOCYTE 5.7 % (15-48); MCH 31.7 pg (25.0-31.0); MCHC 34.9 g/dL (32.0-36.0); MCV 90.9 fL (78.0-100.0); MONOCYTE 9.4 % (0-12); MPV 8.4 fL (6.0-9.5); NEUTROPHIL 80.9 % (41-80); NRBC 0; PLT 242 K/uL (150-400); RBC 2.87 M/uL (4.70-6.00); RDW 14.6 % (11.5-14.0); WBC 8.7 K/uL (4.0-10.5)
[2022-03-25 15:25] LABS: INR 1.27 (0.9-1.2); PROTHROMBIN TIME 15.5 SECONDS (11.9-13.9); PTT 33.2 SECONDS (24.9-34.6)
[2022-03-25 15:40] LABS: LACTIC ACID 0.6 mmol/L (0.4-1.9)
[2022-03-25 15:43] LABS: ALBUMIN 3.2 g/dL (3.4-5.0); BILIRUBIN - TOTAL 0.4 mg/dL (0.2-1.0); BUN/CREAT RATIO (CALC) 7.9 RATIO; CREATININE 0.89 mg/dL (0.67-1.17); GLOBULIN (CALCULATION) 3.4 g/dL; POTASSIUM 3.5 mmol/L (3.5-5.1); TOTAL PROTEIN 6.6 g/dL (6.4-8.2)
[2022-03-25 15:50] LABS: RETICULOCYTE COUNT 1.9 % (1.0-2.0)
[2022-03-25 16:03] LABS: CLARITY CLEAR (CLEAR); COLOR YELLOW (YELLOW); pH 7.5 (5.0-9.0)
[2022-03-25 16:04] LABS: BILIRUBIN 1+ mg/dL (NEGATIVE); BLOOD 1+ Ery/uL (NEGATIVE); GLUCOSE (U) NORMAL (NORMAL); LEUKOCYTES NEGATIVE Leu/uL (NEGATIVE); NITRITE NEGATIVE (NEGATIVE); PROTEIN TRACE (LOW) mg/dL (NEGATIVE)
[2022-03-25 16:05] LABS: BACTERIA TRACE; URINARY WBC RARE
[2022-03-25 16:09] LABS: IRON % SATURATION 16.5 %SAT (20-50)
[2022-03-25 17:31] LABS: CORONAVIRUS 2019 SARS-COV-2 NEGATIVE (NEGATIVE); INFLUENZA A NAA NEGATIVE (NEGATIVE)
[2022-03-25 18:10] LABS: FOLIC ACID (SERUM) 30.3 ng/mL (8.6-58.9); MAGNESIUM 1.3 mg/dL (1.8-2.4)
[2022-03-26 06:33] LABS: BASOPHIL 0.4 % (0-2); EOSINOPHIL 2.9 % (0-5); HCT 24.4 % (42.0-52.0); HGB 8.3 g/dl (13.2-18.0); LYMPHOCYTE 8.1 % (15-48); MCH 31.6 pg (25.0-31.0); MCV 92.8 fL (78.0-100.0); MONOCYTE 8.4 % (0-12); MPV 8.4 fL (6.0-9.5); NEUTROPHIL 78.9 % (41-80); NRBC 0; PLT 244 K/uL (150-400); RBC 2.63 M/uL (4.70-6.00); RDW 14.9 % (11.5-14.0)
[2022-03-26 07:33] LABS: BILIRUBIN - TOTAL 0.3 mg/dL (0.2-1.0); BUN/CREAT RATIO (CALC) 8.5 RATIO; CREATININE 0.94 mg/dL (0.67-1.17); GLOBULIN (CALCULATION) 3.1 g/dL; POTASSIUM 4.2 mmol/L (3.5-5.1); TOTAL PROTEIN 6.1 g/dL (6.4-8.2)
--- NOTE | 2022-03-26 14:40 | NUR ---
03/26/22 Mr. Santos lives at home with his spouse. They have 2 grandchildren living in the home; 13 and 17 y/o. They have a counselor who is treating the 13 y/o. - Mr. Santos is followed at [facility] for treatment of throat and lung cancer. - he has a trach, suction machine, and tube feedings. A is current and have been notified of admission. Please notify [facility] at [phone] if patient discharges over the weekend.
[2022-03-27] MEDS ORDERED: AUGMENTIN 500-1 EACH PO (09:41)
[2022-03-27] MEDS ORDERED: DIFLUCAN150 MG PO (09:41)
[2022-03-27] MEDS ORDERED: LIDOCAINE 4%50 ML NEB (09:43)
--- NOTE | 2022-03-27 12:06 | NUR ---
DISCHARGED HOME WITH . INSTRUCTIONS GIVEN TO PATIENT ABOUT DRS APPOINTMENTS AND IRON INFUSION NEXT WEEK. [facility] NOTIFIED OF DISCHARGE. PORT A CATH DCD AND FLUSHED WITH HEPARIN. MONITOR DCD VERBALIZED UNDERSTANDING OF ALL INSTRUCTIONS.
== END 2022-03-27 11:49 | disposition home health service (06) ==
LOC: FER 14:10 → FTCU 19:00
PROVIDERS: Emergency Medicine; Nurse Practitioner; ADMIT Internal Medicine
DX: J18.9 Pneumonia, unspecified organism (principal); B37.0 Candidal stomatitis; J44.9 Chronic obstructive pulmonary disease, unspecified; I11.0 Hypertensive heart disease with heart failure; I50.32 Chronic diastolic (congestive) heart failure; I25.10 Atherosclerotic heart disease of native coronary artery without angina pectoris; I25.2 Old myocardial infarction; E78.5 Hyperlipidemia, unspecified; F17.210 Nicotine dependence, cigarettes, uncomplicated; Z88.5 Allergy status to narcotic agent; Y95 Nosocomial condition; Z85.118 Personal history of other malignant neoplasm of bronchus and lung; Z95.5 Presence of coronary angioplasty implant and graft; Z79.02 Long term (current) use of antithrombotics/antiplatelets; Z79.01 Long term (current) use of anticoagulants; Z79.899 Other long term (current) drug therapy; Z20.822 Contact with and (suspected) exposure to COVID-19
CPT/HCPCS: 36415; 36600; 70490; 71045; 71250; 74230; 80053; 80202; 81001; 82607; 82728; 82746; 82803; 83540; 83550; 83605; 83735; 84145; 84443; 85025; 85610; 85730; 87040; 87088; 93005; 94640; 94664; 94760; G0378; J1170; J1642; J2001; J2405; J2543; J3370; J3475; J7050; U0002